=== PATIENT | female | born 1975 | race Caucasian/White ===

== ENCOUNTER 2025-08-22 22:07 | Inpatient (IN) | payer OTHER ==
[~2025-08-22] VITALS: Ht 172.7 cm; Wt 128.0 kg
--- NOTE | 2025-08-22 23:45 | Physician Documentation ---
History of Present Illness ~ Chief Complaint: Mental Health Eval Stated Complaint: MH Time Seen by MD: 22:27 HPI Patient is a 49-year-old female that presents to the emergency department for evaluation of acute onset of mental health/psychiatric issues. Reports that she has had progressive episodes over the last 6 months of hearing voices paranoid delusions of seeing in real-time people hacking into her phone hacking into her computer hearing famous people's voices in her head talking to her being more aggressive with her dog than she normally is per her daughter's thoughts of suicide due to the frustration of the voices in her head. Patient reports that she has consider driving off a jennifer drowning herself cutting her wrists but has not acted on those thoughts at this time. Patient denies interested in harming anyone else at this time. Patient reports that she has a history significant for depression anxiety PCOS that she is currently medicated for. Patient reports that she has stopped taking her medication for depression several months ago but is currently taking trazodone as needed Ativan as needed propranolol as needed metformin for her PCOS and spironolactone for her PCOS. Patient denies any other symptoms at this time. Medication Reconciliation Allergies: Coded Allergies: morphine (Verified Allergy, Unknown, 08/22/25) Scheduled Estradiol (Estradiol), 1 PATCH TD , (Reported) Meloxicam (Meloxicam), 1 TAB PO DAILY, (Reported) Metformin Hcl* (Metformin ER*), 2 TAB PO BID, (Reported) Spironolactone (Spironolactone), 1 TAB PO DAILY, (Reported) Topiramate (Topamax), 1 TAB PO DAILY, (Reported) Trazodone HCl (Trazodone HCl), 1-2 TAB PO HS, (Reported) Valacyclovir HCl (Valacyclovir), 1 TAB PO DAILY, (Reported) Scheduled PRN Propranolol Hcl* (Inderal*), 1-2 TAB PO BID PRN for anxiety, (Reported) Miscellaneous Medications Cyclosporine (Restasis Multidose), 1 DROP EACHEYE, (Reported) Estradiol (Imvexxy), (Reported) Ketoconazole (Ketoconazole), TOP, (Reported) Lorazepam (Ativan), (Reported) Review of Systems ROS As stated above in the HPI, otherwise all systems are reviewed and negative. Physical Exam Vital Signs: Temperature: 97.7, Source: Oral, Heart Rate: 99, Respiratory Rate: 16, BP: 121/82, Pulse Oximetry: 98, Weight: 136.950 Oxygen Flow Rate: 0 Physical Exam VITALS: Reviewed and as above. GENERAL: Alert and oriented, patient appears to be in mild distress and tearful. HEENT: Normocephalic, atraumatic, PERRL, EOMI, dry mucosa, no erythema RESPIRATORY: Lungs clear, normal breath sounds, no respiratory distress. CHEST: No accessory muscle use, no retractions CV: Regular rate, rhythm, no edema, no murmur, No: JVD GI: Soft, non-tender, bowels sounds present, no rebound, guarding, or rigidity BACK: No CVA tenderness, or swelling MUSCULOSKELETAL No deformities, no edema SKIN: Warm and dry, no rash NEURO: Oriented x4, No motor or sensory deficit PSYCH: No agitation noted at this time, patient is able to carry on a fluid conversation and report her symptoms. Progress Results/Orders Results/Orders Orders - MOHAMUD HUGHES MD Cephalexin Capsule (Keflex Capsule) (08/23/25 08:00) Completed Orders - MOHAMUD HUGHES MD Bacitracin Ointment (Bacitracin Ointment (08/23/25 00:45) Acetaminophen 325mg Tablet (Tylenol Tabl (08/23/25 00:55) Medications Received in ER Medications (Trade) Dose Ordered Sig/Efra Route PRN Reason Start Time Stop Time Status Last Admin Dose Admin (Desyrel tablet) 50 mg HS PRN PO Insomnia 08/22/25 23:25 08/23/25 01:18 50 MG (bacitracin ointment) 1 applic ONCE ONCE TP 08/23/25 00:45 08/23/25 00:46 DC 08/23/25 01:18 1 APPLIC (Tylenol tablet) 650 mg ONCE ONCE PO 08/23/25 00:55 08/23/25 00:56 DC 08/23/25 01:18 650 MG Vital Signs 08/22/25 22:15 Temp 97.7 Pulse 99 Resp 16 B/P (MAP) 121/82 Pulse Ox 98 O2 Flow Rate 0 Laboratory Tests Test 08/22/25 23:22 08/23/25 00:25 08/23/25 00:35 08/23/25 00:40 White Blood Count 6.8 Red Blood Count 3.56 L Hemoglobin 11.0 L Hematocrit 32.2 L Mean Corpuscular Volume 90.6 Mean Corpuscular Hemoglobin 30.8 Mean Corpuscular Hemoglobin Concent 34.0 Red Cell Distribution Width 14.3 Platelet Count 301 Mean Platelet Volume 9.0 Neutrophils (%) (Auto) 59.6 Lymphocytes (%) (Auto) 30.9 Monocytes (%) (Auto) 7.6 Eosinophils (%) (Auto) 1.7 Basophils (%) (Auto) 0.2 Neutrophils # (Auto) 4.0 Lymphocytes # (Auto) 2.1 Monocytes # (Auto) 0.5 Eosinophils # (Auto) 0.1 Basophils # (Auto) 0.0 CBC Comment Sodium Level 137 Potassium Level 3.5 Chloride Level 105 Carbon Dioxide Level 23.9 L Anion Gap 8 Blood Urea Nitrogen 13 Creatinine 0.73 Estimated GFR/1.73 m2 85 BUN/Creatinine Ratio 17.8 Glucose Level 119 H Calcium Level 8.3 L Total Bilirubin 0.2 Aspartate Amino Transf (AST/SGOT) 16 Alanine Aminotransferase (ALT/SGPT) 19 Alkaline Phosphatase 85 Total Protein 7.5 Albumin 3.1 L Globulin 4.4 H Albumin/Globulin Ratio 0.7 L LDL Cholesterol 92 Thyroid Stimulating Hormone (TSH) 4.30 Chemistry Comments Ethyl Alcohol Level < 10 Urine Specimen Description Cln catch midstream Urine Color Yellow Urine Clarity Slightly cloudy Urine pH 6.0 Urine Specific [place] 1.025 Urine Protein Negative Urine Glucose (UA) Negative Urine Ketones Trace H Urine Occult Blood Trace-intact Urine Nitrite Negative Urine Bilirubin Small Urine Urobilinogen 0.2 Urine Leukocyte Esterase Negative Urine RBC 3-10 Urine WBC 0-4 Urine Squamous Epithelial Cells Few Urine Bacteria 1+ Urine Culture Indicated Not ind Volume Urine Centrifuged 10 ml Urine HCG, Qualitative Negative Urine Comment Urine Opiates Screen Negative Urine Methadone Screen Negative Urine Fentanyl Screen Negative Urine Barbiturates Screen Negative Urine Phencyclidine Screen Negative Urine Amphetamines Screen Positive Urine Benzodiazepines Screen Negative Urine Cocaine Screen Negative Urine Cannabinoids Screen Negative Drug Screen Comment SARS-CoV-2 Antigen (Rapid) Negative [place] Level < 0.2 L EKG/XRAY/CT/US/VASC/MRI EKG : Additional Comment EKG interpreted by myself shows time of 0015, rate 88, sinus rhythm, normal axi s, no ST changes Medical Decision Making Additional info obtained from: other Findings This patient presents with symptoms consistent with an underlying psychiatric disorder unknown cause at this time. Presentation not consistent with acute organic causes to include delirium, dementia or drug induced disorders (acute ingestions or withdrawal; no evidence of toxidrome). Given the H&P, I suspect this patient is suicidal/homicidal/gravely disabled_ and patient was placed on 1798 hold. Psychiatry was consulted. Differential Dx:Considerations: Include: Alcohol abuse, Anxiety, Bipolar disorder, Conversion disorder, Depression, Encephaloathy, Homicidal, Panic disorder, Personality disorder, Schizophrenia, Substance abuse, Suicidal, Other Departure Disposition: 30 STILL A PATIENT Impression: Primary Impression: Anxiety Additional Impressions: Depression Suicidal ideation Discharge Instructions: Medical Screening Exam, Suicidal Feelings: How to Help Yourself, Depression, Adult Additional Instructions: This patient presents with symptoms consistent with an underlying psychiatric disorder unknown cause at this time. Presentation not consistent with acute organic causes to include delirium, dementia or drug induced disorders (acute ingestions or withdrawal; no evidence of toxidrome). Given the H&P, I suspect this patient is suicidal/homicidal/gravely disabled_ and patient was placed on 1798 hold. Labs reviewed and there was no evidence of major pathologic derangements. Patient is medically cleared for mental health evaluation Referrals: NO PRIMARY CARE PROVIDER (PCP) Education Educated: Patient Educated regarding: diagnosis, treatment, need for follow up Signature Scribe Signature: A Attestation: The note accurately reflects work and decisions made by me.Mohamud Hughes MD 08/23/25 02:09 Scribed for Esequiel Hernandez by YUDITH Escalera . 08/22/25 23:49 ESEQUIEL HERNANDEZ Aug 22, 2025 23:45 MOHAMUD HUGHES MD Aug 23, 2025 00:22
--- NOTE | 2025-08-23 00:40 | RADIOLOGY REPORT ---
CHEST RADIOGRAPH Indication: ro infection. Fever. Technique: Single frontal view of the chest was obtained COMPARISON: None FINDINGS: Lungs and pleural spaces are clear. Cardiac silhouette and letty are within normal limits. Bones and soft tissues demonstrate no significant abnormality. IMPRESSION: No acute disease.
[2025-08-23 00:44] LABS: MEAN PLATELET VOLUME 9.0 FL (7.4-10.4); RED CELL DISTRIBUTION WIDTH 14.3 % (11.5-14.5)
[2025-08-23 00:57] LABS: LEUKOCYTE ESTERASE ,URINE NEGATIVE (Neg); NITRITES, URINE NEGATIVE (Neg); OCCULT BLOOD,URINE TRACE-INTACT (Neg); UA COLLECTION TYPE CLN CATCH MIDSTREAM; URINE HCG NEGATIVE (NEG)
[2025-08-23] MEDS ORDERED: LORA-268 (01:00)
[2025-08-23] MEDS ORDERED: KETO15CR2 TOP (01:00)
[2025-08-23] MEDS ORDERED: CYCL5.5D EACHEYE (01:00)
[2025-08-23] MEDS ORDERED: TRAZ-251 PO (01:00)
[2025-08-23] MEDS ORDERED: ESTR1PAT93 TD (01:00)
[2025-08-23] MEDS ORDERED: VALA100031 PO (01:00)
[2025-08-23] MEDS ORDERED: METF-900 PO (01:00)
[2025-08-23] MEDS ORDERED: MELO-102 PO (01:00)
[2025-08-23] MEDS ORDERED: PROP10TA10 PO (01:00)
[2025-08-23] MEDS ORDERED: TOP100T PO (01:00)
[2025-08-23] MEDS ORDERED: SPIR25TA5 PO (01:00)
[2025-08-23] MEDS ORDERED: ESTR10IN VG (01:00)
[2025-08-23 01:02] LABS: CREATININE 0.73 MG/DL (0.40-0.90); LDL CHOLESTEROL 92 MG/DL (50-100); TOTAL CARBON DIOXIDE 23.9 MMOL/L (24-32); eCRCL 95 ML/MIN; eGFR 85 ML/MIN
[2025-08-23 01:04] LABS: ETHANOL < 10 MG/DL (<10)
[2025-08-23 01:18] LABS: URINE AMPHETAMINE SCREEN POSITIVE (Neg); URINE BARBITUATE SCREEN NEGATIVE (Neg); URINE BENZODIAZEPINES SCREEN NEGATIVE (Neg); URINE CANNABINOID SCREEN NEGATIVE (Neg); URINE COCAINE SCREEN NEGATIVE (Neg); URINE METHADONE SCREEN NEGATIVE (Neg); URINE OPIATE SCREEN NEGATIVE (Neg); URINE PHENCYCLIDINE SCREEN NEGATIVE (Neg)
[2025-08-23] MEDS: bacitracin 15gm ointment TP ONE (01:18)
[2025-08-23 01:26] LABS: SQUAMOUS EPITHELIAL CELL,UR FEW /LPF (FEW)
--- NOTE | 2025-08-23 05:41 | ELECTROCARDIOGRAPH REPORT ---
[facility] Test Date: 2025-08-23 Test Time: 00:15:38 Pat Name: DUANE CHILEL Department: [facility]- Patient ID: [facility]-[id number] Room: [facility] Gender: F Interface Control Officer: ANGELA : 1975 Requested By: ESEQUIEL HERNANDEZ Order Number: [id number] Reading MD: Dr. Jarrod Leary Measurements Intervals [place] Rate: 88 P: 30 NV: 156 QRS: 43 QRSD: 90 T: 24 QT: 367 QTc: 444 Interpretive Statements Sinus rhythm Baseline wander in lead(s) III Electronically Signed On 09-02-2025 8:16:[address] Jarrod Leary Please click the below link to view image of tracing.
[2025-08-23 07:57] LABS: CHOL/HDL RATIO 3.2 (0.00-4.99); LDL CHOLESTEROL 83 MG/DL (50-100)
[2025-08-23] MEDS: estradiol 0.1mg patch.TDWK TD SCH (08:00)
[2025-08-23] MEDS: METFORMIN HCL 500 MG PO SCH (08:00)
[2025-08-23] MEDS: cycloSPORINE 0.05% ophthalmic emulsion EACHEYE SCH (10:40)
[2025-08-23] MEDS ORDERED: mag hydrox/Alum hydrox/simeth 30ml oral suspension PO PRN (15:05)
[2025-08-23] MEDS ORDERED: loperamide 2mg capsule PO PRN (15:05)
[2025-08-23 16:50] VITALS: RESP 16; O2SAT 95
[2025-08-23] MEDS ORDERED: LORA-268 PO (17:23)
[2025-08-23 19:00] VITALS: RESP 16; O2SAT 100
[2025-08-23 20:00] VITALS: BP 126/78; PULSE 80; RESP 16; TEMP 97; O2SAT 100
[2025-08-24 07:00] VITALS: RESP 16; O2SAT 97
[2025-08-24 08:00] VITALS: BP 122/78; PULSE 81; RESP 16; TEMP 97; O2SAT 97
[2025-08-24 09:50] LABS: CHOL/HDL RATIO 3.3 (0.00-4.99); LDL CHOLESTEROL 86 MG/DL (50-100)
[2025-08-24] MEDS: MELOXICAM 7.5 MG TABLET PO SCH (12:11)
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
--- NOTE | 2025-08-24 18:07 | CONSULTATION REPORT - RESIDENT ---
Consult Providers to CC Resident Creating Document: BECKA GEE RES History of Present Illness Reason for Admit\Complaint: Psychiatric Illness History of Present Illness This is a 49-year-old female admitted in adult Mental Health unit for psychiatric illness. She reports that she she has pain in left big toe which is 7/10 in intensity, swollen, non radiating , no aggravating or relieving factors. In addition to that she also has right toe pain which is 4/10 in intensity, swollen, nonradiating, no aggravating or relieving factors. Patient reports both right and left toe swelling since 5 years but it has been getting worse for the past couple of days. In addition to that she also complains of back pain for the past 15 years and back pain aggravates with walking. She attributes her back pain due to a fall 15 years ago. She denies chest pain, shortness of breath, states normal bowel movements, no nausea and vomitting She also reports that she is allergic to morphine derivatives. Allergies: Coded Allergies: morphine (Verified Allergy, Unknown, 08/22/25) Home Medications Home Medications Active Reported Ativan (Lorazepam) 0.5 Mg Tablet 1 Tab PO DAILY PRN Restasis Multidose (Cyclosporine) 0.05 % Drops 1 Drop EACHEYE BID Ketoconazole 2 % Cream..g. 1 Applic TOP DAILY PRN Metformin ER* (Metformin HCl) 500 Mg Tab.sr.24h 2 Tab PO BID Spironolactone 25 Mg Tablet 1 Tab PO DAILY Trazodone HCl 50 Mg Tablet 1-2 Tab PO HS Inderal* (Propranolol HCl) 10 Mg Tablet 1 Tab PO BID PRN Estradiol 0.1 Mg/24 Hour Patch.tdsw 1 Patch TD TUFR Imvexxy (Estradiol) 10 Mcg Insert 10 Mcg VG DAILY Valacyclovir (Valacyclovir HCl) 1,000 Mg Tablet 1 Tab PO DAILY Meloxicam 15 Mg Tablet 1 Tab PO DAILY Topamax (Topiramate) 100 Mg Tablet 1 Tab PO DAILY Past Medical History Past Medical History Cervical Cancer Past Surgical History Surgical History Comment As per patient cervical removal and partial hysterectomy Family History Family History: Patient reports no known family medical history. Past Social History Social History Comment She has been smoking since age 19 and smokes about 3-4 cigarettes daily Denies alcohol use Denies other recreational drug use She lives with a Ex boyfriend amd used to work in [employer] ROS ROS All reviewed and negative except for pertinent positive findings mentioned in HPI. Exam Vitals: Vital Signs Date Time Temp Pulse Resp B/P (MAP) Pulse Ox O2 Delivery O2 Flow Rate FiO2 08/24/25 08:59 81 08/24/25 08:00 97.0 16 122/78 (93) 97 08/24/25 07:00 Room Air 08/22/25 22:15 0 General: Awake , alert and oriented to time,place, person,not in distress HEENT: Atraumatic, normocephalic, PERRLA, EOMI, anicteric sclera ; pink conjunctiva, dry mucos membranes Neck: Trachea midline. Supple, normal range of motion, no JVD, no lymphadenopathy Chest and Respiratory: Equal breath sounds bilaterally, no tachypnea, wheezing, ronchi,rubs .Chest wall is symmetric and without deformity, Cardiac: S1, S2 heard,Regular rate and rhythm, no murmurs heard Abdomen: Soft, No tenderness, No guarding or rigidity, Felipe's sign negative. normal bowel sounds x4 quadrant, no hepatosplenomegaly MSK: Range of motion of all extremities are normal. There is no joint pain or joint swelling or joint erythema. There is no muscle pain or tenderness or swelling. Extremities: warm, well-perfused, No cyanosis, clubbing, 2+ pulses felt Upper Extremities normal. Right and Left Big toe swollen and erythematous. Bilaterally swelling of lower extremities. Neurological: Speech is clear, alert, and oriented x 4. No sensory or motor deficits. Cranial nerves II-XII intact. Skin: Warm and dry Diagnostic Data Last Recorded Lab Results: 08/22/25 23208/22/25 232 Additional Plan This is a 49-year-old female admitted for psychiatric illness adult mental health Unit Right Big Toe/Left Big Toe Swelling Ordered CBC, CRP,ESR Consulted wound care and Paperboard Boxes Estimator WBC COUNT NORMAL Bilateral lower Leg and Feet Swelling Denies shortness of breath Ordered vascular ultrasound of lower extremity Patient reports that swelling since 5-6 years. NORMOCYTIC NORMOCHROMIC ANEMIA Hgb 11 Hct: 32.2 Follow up with iron panel Psychiatric Illness Managed as per psychiatric team. Disposition: Hospitalist team will continue to monitor patient. Becka Gee PGY1 IM Date of Service: Aug 24, 2025 Billing Provider: DIMITRI RIVERO MD Common Visit Codes: [id number] INP/OBS CARE (HIGH) BECKA GEE, BRUCE Aug 24, 2025 18:07 DIMITRI RIVERO MD Aug 25, 2025 10:13
[2025-08-24 19:21] LABS: LDL CHOLESTEROL 92 MG/DL (50-100); PRO BRAIN NATRIURETIC PEPTIDE 213 PG/ML (0-125)
[2025-08-24 19:36] VITALS: RESP 18; O2SAT 97
[2025-08-24 19:38] VITALS: BP 137/72; PULSE 83; RESP 18; TEMP 97.6; O2SAT 97
[2025-08-25 07:00] VITALS: RESP 16; O2SAT 98
[2025-08-25 08:00] VITALS: BP 93/54; PULSE 84; RESP 16; TEMP 97.4; O2SAT 98
--- NOTE | 2025-08-25 10:38 | VASCULAR REPORT ---
Bilateral lower extremity venous duplex Clinical History: Pain Comparison: None Technique: Duplex Doppler evaluation of the deep venous systems of both lower extremities from the common femoral veins to the popliteal veins including color Doppler and spectral/pulsed waveform analysis was performed. Findings: RIGHT SIDE: The common femoral vein demonstrates appropriate compressibility and waveform variability. There is compressibility/patency of the great saphenous vein at the proximal thigh. The femoral vein demonstrates appropriate compressibility and waveform variability. The deep femoral vein demonstrates appropriate compressibility and waveform variability. The popliteal vein demonstrates appropriate compressibility and waveform variability. There is normal compressibility at the tibioperoneal trunk. LEFT SIDE: The common femoral vein demonstrates appropriate compressibility and waveform variability. There is compressibility/patency of the great saphenous vein at the proximal thigh. The femoral vein demonstrates appropriate compressibility and waveform variability. The deep femoral vein demonstrates appropriate compressibility and waveform variability. The popliteal vein demonstrates appropriate compressibility and waveform variability. There is normal compressibility at the tibioperoneal trunk. Impression: No right or left femoropopliteal venous thrombosis.
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
[2025-08-25] MEDS: propranolol 10mg tablet PO PRN (14:16)
[2025-08-25] MEDS: duloxetine 30mg CAPSULE.DR PO ONE (15:17)
[2025-08-25 19:00] VITALS: RESP 14; O2SAT 98
[2025-08-25 19:49] VITALS: BP 120/62; PULSE 85; RESP 14; TEMP 97.5; O2SAT 98
[2025-08-26 07:00] VITALS: RESP 14; O2SAT 97
[2025-08-26 08:00] VITALS: BP 118/70; PULSE 80; RESP 14; TEMP 98.9; O2SAT 97
[2025-08-26] MEDS: duloxetine 30mg CAPSULE.DR PO SCH (08:17)
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
--- NOTE | 2025-08-26 15:05 | PROGRESS NOTE ---
Daily Progress Note Providers to CC ~ Antibiotic Timeout Antibiotic Ordered?: Yes Subjective Patient mentioned that her left great toe hurts when she walks Objective Vital Signs Date Time Temp Pulse Resp B/P (MAP) Pulse Ox O2 Delivery O2 Flow Rate FiO2 08/26/25 14:29 17 08/26/25 08:37 118 08/26/25 08:00 98.9 118/70 (86) 97 Room Air 08/26/25 07:00 0.0 Result Diagram: 08/22/25232108/22/252321 General-patient not in any acute distress, alert awake , looks comfortable, obese HEENT-atraumatic normocephalic, neck supple without elevated JVD, no thyromegaly or carotid bruit. No lymphadenopathy bilaterally. Eyes-no icterus or pallor seen in eyes Chest-clear to auscultation bilaterally, breathing nonlabored no tachypnea, no wheezing, no crepitation, no crackles. Heart-S1-S2 normal, regular heart rate no murmur Abdomen bowel sounds positive on auscultation, soft nondistended nontender no guarding, no rigidity Skin / extremity-no pedal edema able to move all four extremity. Signs of ingrown toenail inflammation over left great toe Neurology-grossly intact, nonfocal alert awake cooperated during physical examination Problem\Assessment\Plan This is a 49-year-old female admitted for psychiatric illness adult mental health Unit Right Big Toe/Left Big Toe Swelling Mildly elevated sed rate Ordered procalcitonin level WBC COUNT NORMAL Patient needs wound care follow-up in [facility] Bilateral lower Leg and Feet Swelling vascular ultrasound of lower extremity showed No right or left femoropopliteal venous thrombosis. NORMOCYTIC NORMOCHROMIC ANEMIA Hgb 11 Hct: 32.2 Follow up with iron panel Psychiatric Illness Managed as per psychiatric team. Disposition: Hospitalist team will continue to monitor patient. Date of Service: Aug 26, 2025 Billing Provider: FREDRICK THAKKAR MD Common Visit Codes: [id number] INP/OBS CARE(LOW) FREDRICK THAKKAR MD Aug 26, 2025 15:05
[2025-08-26 19:00] VITALS: RESP 18; O2SAT 94
[2025-08-26 19:15] VITALS: BP 112/70; PULSE 90; RESP 18; TEMP 97.9; O2SAT 94
[2025-08-27 07:00] VITALS: RESP 16; O2SAT 98
[2025-08-27 07:43] LABS: MEAN PLATELET VOLUME 8.4 FL (7.4-10.4); RED CELL DISTRIBUTION WIDTH 14.0 % (11.5-14.5)
[2025-08-27 08:15] VITALS: BP 126/79; PULSE 93; RESP 16; TEMP 97.2; O2SAT 98
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
[2025-08-27 17:26] LABS: CLOZ+NORCLOZ TOTAL <40 ng/mL (.); NORCLOZAPINE, SERUM <20 ng/mL (Not Estab.)
[2025-08-27 19:47] VITALS: BP 126/79; PULSE 99; RESP 20; TEMP 97.2; O2SAT 97
[2025-08-27 20:00] VITALS: RESP 20; O2SAT 97
[2025-08-28 07:00] VITALS: RESP 18; O2SAT 97
[2025-08-28 07:33] VITALS: BP 126/78; PULSE 79; RESP 16; TEMP 97.9; O2SAT 98
[2025-08-28] MEDS: duloxetine 30mg CAPSULE.DR PO SCH (08:06)
[2025-08-28] MEDS: Permethrin 1% 59ml topical rinse TP ONE (10:50)
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
--- NOTE | 2025-08-28 16:15 | PROGRESS NOTE- Residence ---
Progress Note - Resident Providers to CC Resident Creating Document: HENRI GARCIA, BRUCE ~ Central Line/PICC still needed: N\A [place]-Non Protocol [place] Indications Met/Not Met: F/C Indications Not Met Antibiotic Timeout Antibiotic Ordered?: No Objective Vital Signs Date Time Temp Pulse Resp B/P (MAP) Pulse Ox O2 Delivery O2 Flow Rate FiO2 08/28/25 08:07 79 08/28/25 07:33 97.9 16 126/78 (94) 98 Room Air 0.0 Result Diagram: 08/27/25 0707 Counseling Services Smoking & Tobacco Cessation: N/A Advance Care Planning Advanced Care planning: N/A Plan Plan Head lice break out in mental Ordered ivermectin 200 mcg per body weight- 20 mg for 7 days an empty stomach Date of Service: Aug 28, 2025 Billing Provider: NADINE BRANCH MD Common Visit Codes: [id number] INP/OBS CARE(LOW) HENRI GARCIA, BRUCE Aug 28, 2025 16:15 NADINE BRANCH MD Aug 31, 2025 14:42
[2025-08-28 19:00] VITALS: RESP 16; O2SAT 98
[2025-08-28 20:00] VITALS: BP 115/76; PULSE 106; RESP 16; TEMP 97.8; O2SAT 98
[2025-08-28] MEDS: magnesium hydroxide 30ml (MOM) UD suspension PO PRN (20:46)
[2025-08-29 07:53] VITALS: BP 94/70; PULSE 88; RESP 16; TEMP 97.4; O2SAT 98
[2025-08-29 08:24] VITALS: RESP 18; O2SAT 97
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
[2025-08-29] MEDS: amox tr/potassium clavulanate 500mg/125mg TAB PO SCH (17:24)
[2025-08-29 19:00] VITALS: RESP 18; O2SAT 97
[2025-08-29 20:00] VITALS: BP 136/89; PULSE 112; RESP 18; TEMP 97.9; O2SAT 97
[2025-08-30 07:00] VITALS: RESP 16; O2SAT 97
[2025-08-30 08:00] VITALS: BP 96/64; PULSE 78; RESP 16; TEMP 98.2; O2SAT 97
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
[2025-08-30 19:00] VITALS: RESP 18; O2SAT 100
[2025-08-30] MEDS ORDERED: IVERMECTIN 117 GM LOTION TP ONE ×2 (19:00)
--- NOTE | 2025-08-30 19:03 | PROGRESS NOTE ---
Daily Progress Note Providers to CC ~ Antibiotic Timeout Antibiotic Ordered?: Yes Subjective This is the hospitalist progress note on patients hospitalized at [facility]/ [facility] [place] for behavioral health. The patient is on lice isolation thus I evaluated the patient from the doorway the patient did take off her shoe and I evaluated her right great toe ingrown toenail for which the patient does have medial erythema which is mild the patient is on Augmentin however we will need outpatient podiatry follow up for toenail removal. Objective Vital Signs Date Time Temp Pulse Resp B/P (MAP) Pulse Ox O2 Delivery O2 Flow Rate FiO2 08/30/25 09:08 78 08/30/25 08:00 98.2 16 96/64 (75) 97 Room Air 08/30/25 07:00 0.0 Result Diagram: 08/27/25 0707 Gen. No acute distress alert and oriented Respiratory no acute distress no dyspnea appreciated Neuro no focal deficits appreciated Right lower extremity- great toe is erythematous medially with ingrown toenail immediately Problem\Assessment\Plan This is a 49-year-old female admitted for psychiatric illness adult mental health Unit Severe depression ADHD Followed by Psychiatry Right 1st toe ingrown toenail medially Augmentin times one-week We will need outpatient follow up with the Podiatry Bilateral lower Leg and Feet Swelling vascular ultrasound of lower extremity showed No right or left femoropopliteal venous thrombosis. NORMOCYTIC NORMOCHROMIC ANEMIA Hgb 11 Hct: 32.2 Lice Treated with permethrin P.o. ivermectin Disposition: Hospitalist team will continue to monitor patient. Date of Service: Aug 30, 2025 Billing Provider: ALVARO KUMAR DO Common Visit Codes: [id number] INP/OBS CARE(LOW) ALVARO KUMAR DO Aug 30, 2025 19:03
[2025-08-30] MEDS: docusate sod 100mg capsule PO SCH (19:57)
[2025-08-30 20:00] VITALS: BP 124/92; PULSE 104; RESP 18; TEMP 98.8; O2SAT 100
[2025-08-31 07:40] VITALS: BP 96/58; PULSE 79; RESP 14; TEMP 98.3; O2SAT 98
[2025-08-31 09:13] VITALS: RESP 14; O2SAT 98
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
[2025-08-31 19:00] VITALS: RESP 16; O2SAT 98
[2025-08-31 19:23] VITALS: BP 112/82; PULSE 90; RESP 20; TEMP 97.9; O2SAT 98
[2025-09-01 07:30] VITALS: BP 107/76; PULSE 79; RESP 14; RESP 16; TEMP 98.5; O2SAT 97
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
[2025-09-01 19:00] VITALS: RESP 20; O2SAT 99
--- NOTE | 2025-09-01 19:36 | PROGRESS NOTE- Residence ---
Progress Note - Resident Providers to CC Resident Creating Document: JOSHUA MARTINEZ RES ~ Antibiotic Timeout Antibiotic Ordered?: Yes Subjective Patient was seen at the [facility] unit this evening. She complained about the chronic right lower back pain over a year which is bothering her on walking around. She has been taking Tylenol and ibuprofen which were not very helpful. She is currently taking meloxicam for her back pain and still wants to have some treatment and investigations including x-ray/some other imaging. She reported that there is a some other localized muscular pain over her right thigh as well. She denies burning/painful urination, hematuria, history of passing kidney stones. She also endorsed that she has been having the painful ingrown right toenail for which she has prescribed with Augmentin. She endorsed that she has contaminated lice infestation for which she has been treated and isolated for awhile. Objective Vital Signs Date Time Temp Pulse Resp B/P (MAP) Pulse Ox O2 Delivery O2 Flow Rate FiO2 09/01/25 08:09 79 09/01/25 07:30 98.5 14 107/76 (86) 97 Room Air 0.0 Vitals were stable at the moment with temp 98.5 F, TX 79/minute, RR 16/minute, BP 107/76 mm Hg, pulse oximetry 97% on room air. On exam, General: Well alert, well oriented, not confused, not agitated, not in acute distress, well cooperated during the physical. HEENT: Conjunctive are pink, sclerae clear, no icterus, pupil is equal in both sides, reactive to light, no ear discharge, no pharyngeal erythema or an edema, mouth and lips are moist. Neck: Supple, no JVD, no lymphadenopathy and thyromegaly. Lungs:Equal air entry on both lungs, no additional sounds Heart: S1-S2 regular sinus rhythm and, regular rate, no gallops, no rubs, no murmurs Abdomen: No visible peristalsis, Bowel sounds present on auscultation, soft, nontender, no guarding, no rigidity Extremities: No obvious deformities, no pitting edema bilaterally, capillary refill intact, able to wiggle toes both sides, peripheral pulsations are intact on both sides LEAD NITRATE PROCESSOR: No focal neurological deficits, no motor and sensory weakness in all 4 extremities, could move all 4 extremities Musculoskeletal: Slight tenderness over the right lower paraspinal muscular pain with no shooting tenderness. No joint swelling, deformities, inflammations, and no scoliosis Skin: No active skin lesions and rashes Assessment Assessment This is a 49-year-old female admitted for psychiatric illness adult mental h [facility] Unit Plan Plan # Severe depression # ADHD -Followed by Psychiatry # Right 1st toe ingrown toenail medially -Augmentin for one-week -She will need outpatient follow up with the Podiatry # Bilateral lower Leg and Feet Swelling # right lower paravertebral pain -vascular ultrasound of lower extremity showed No right or left femoropopliteal venous thrombosis. -continue meloxicam, started topical lidocaine patch 5% daily # NORMOCYTIC NORMOCHROMIC ANEMIA Hgb 11 Hct: 32.2 # Lice infestation Treated with permethrin, P.o. ivermectin Disposition: Hospitalist team will follow the patient during hospitalization, you are welcome to questions and medical consultation, appreciate for letting us involved in patient's care. Resident MD attestation: Patient was seen, examined and discussed with attending MD, Dr. Linda MARTINEZ MD Internal Medicine Resident, PGY3 [facility] Date of Service: Sep 01, 2025 Billing Provider: FRANDY CLAYTON MD Common Visit Codes: [id number] INP/OBS CARE(MOD) JOSHUA MARTINEZ, RES Sep 01, 2025 19:36 FRANDY CLAYTON MD Sep 13, 2025 06:53
[2025-09-01 20:00] VITALS: BP 125/85; PULSE 117; RESP 20; TEMP 97.9; O2SAT 99
[2025-09-02 07:00] VITALS: RESP 16; O2SAT 98
[2025-09-02 08:00] VITALS: BP 112/70; PULSE 118; RESP 16; TEMP 97.9; O2SAT 98
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
[2025-09-02 19:00] VITALS: RESP 20; O2SAT 99
[2025-09-02 20:00] VITALS: BP 128/80; PULSE 60; RESP 20; TEMP 97.7; O2SAT 99
[2025-09-03 07:00] VITALS: RESP 16; O2SAT 98
[2025-09-03 08:00] VITALS: BP 100/65; PULSE 116; RESP 16; TEMP 97.4; O2SAT 98
--- NOTE | 2025-09-03 18:23 | PROGRESS NOTE- Residence ---
Progress Note - Resident Providers to CC Resident Creating Document: TITO SLATER RES ~ Antibiotic Timeout Antibiotic Ordered?: Yes Subjective Patient seen and examined at bedside. He is complaining of pain in her lower back and is concerned about a lump. On examination I did not find any lump. She wants to get imaging x-ray. Also has a an ingrown toe nail, currently getting Augmentin completing a course of seven days for it. Objective Vital Signs Date Time Temp Pulse Resp B/P (MAP) Pulse Ox O2 Delivery O2 Flow Rate FiO2 09/03/25 08:21 116 09/03/25 08:00 97.4 16 100/65 (77) 98 Room Air 09/03/25 07:00 0.0 General: Awake and Alert, no acute distress. HEENT: Conjunctiva pink, Sclera clear, Mucus Membranes moist. Neck: Supple without masses and tenderness. Resp: Unlabored. Equal breath sounds bilaterally. Heart: Regular rhythm, normal S1 and S2, no rub, murmur or gallop. Abdomen: Soft and non tender no organomegaly. Normal bowel sounds x4 quadrant normoactive. No guarding or rigidity. Extremities: Normal ROM, right great toe ingrown toenail with minimal erythema. MEDICAL REIMBURSEMENT MANAGER: No gross motor or sensory abnormalities. Skin: Warm and Dry. Assessment Assessment 49-year-old female admitted to the mental health unit for severe depression and ADHD. Plan Plan Severe depression ADHD Right 1st digit ingrown toenail, currently completing course of Augmentin Chronic back pain, we will get x-ray of the back follow up with results Lice infestation treated with permethrin Management per psychiatrist, hospitalist team will continue to follow. Date of Service: Sep 03, 2025 Billing Provider: DIMITRI RIVERO MD Common Visit Codes: [id number] INP/OBS CARE(MOD) TITO SLATER RES Sep 03, 2025 18:23 DIMITRI RIVERO MD Sep 04, 2025 10:30
[2025-09-03 19:00] VITALS: RESP 16; O2SAT 95
[2025-09-03 20:00] VITALS: BP 129/63; PULSE 88; RESP 16; TEMP 97.8; O2SAT 95
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
[2025-09-04 07:00] VITALS: RESP 14; O2SAT 100
[2025-09-04 08:00] VITALS: BP 96/60; PULSE 76; RESP 14; TEMP 97.8; O2SAT 100
[2025-09-04] MEDS: IVERMECTIN 117 GM LOTION TP ONE (11:29)
[2025-09-04] MEDS: Permethrin 1% 59ml topical rinse TP ONE (14:32)
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
[2025-09-04 19:26] VITALS: RESP 16; O2SAT 98
[2025-09-04 19:29] VITALS: BP 110/70; PULSE 118; RESP 16; TEMP 97.4; O2SAT 98
[2025-09-05 07:00] VITALS: RESP 16; O2SAT 95
[2025-09-05 08:00] VITALS: BP 104/60; PULSE 78; RESP 15; TEMP 97.3; O2SAT 90
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
--- NOTE | 2025-09-05 18:39 | PROGRESS NOTE- Residence ---
Progress Note - Resident Providers to CC Resident Creating Document: OLGA BRINKELIANA LUIS, RES ~ Antibiotic Timeout Antibiotic Ordered?: No Subjective Patient has been evaluated in mental health unit. The patient is currently complaining of lower back pain, states that he would like to get an x-ray before being discharged. As per medical records she was concerned about a lump, not evidenced on physical exam. Also has a an ingrown toe nail, currently getting Augmentin completing a course of seven days for it. Objective Vital Signs Date Time Temp Pulse Resp B/P (MAP) Pulse Ox O2 Delivery O2 Flow Rate FiO2 09/05/25 08:00 97.3 78 15 104/60 (75) 90 Room Air 09/03/25 19:00 0.0 Physical exam: General: Awake, alert, oriented. No acute distress. Well-developed, hydrated and well-built nourished. No anemia, Jaundice or clubbing. HEENT: Conjunctive are pink, sclerae clear, no icterus, pupil is equal in both sides, reactive to light, no ear discharge, no pharyngeal erythema or an edema. Neck: Supple, no adenopathy, thyromegaly. Trachea is midline. No JVD. Chest: Respiratory: Vesicular breath sounds. No ronchi, crepitus or wheezing. Resonance is normal upon percussion of all lung galindo. Cardiovascular: S1-S2 regular sinus rhythm and, regular rate, no gallops, no rubs, no murmurs Abdomen: No visible distention, Bowel sounds present on auscultation, on palpation: soft, nontender, no guarding, no rigidity. Extremities: No obvious deformities, no pitting edema bilaterally, capillary refill intact, peripheral pulsations are intact on both sides, right great toe ingrown toenail. Neurologic: Mental status: alert and conscious, oriented to place, person and time, preserved memory, normal speech. Cranial nerves I-XII: Normal. Motor system: Preserved power, coordination, no evidenced involuntary movements, strength 5/5 in four extremities. Sensory system: Preserved temperature, pain and vibration sensation. 2+ deep tendon reflexes in biceps, triceps, quadriceps. Negative Babinski. Cerebellar: No nystagmus, dysdiadochokinesia, normal [id number] testing. Skin: Warm and dry. Assessment Assessment 49-year-old female admitted to the mental health unit for severe depression and ADHD. Plan Plan Severe depression ADHD Continue management as per psychiatrist. Right 1st digit ingrown toenail Completed course of Augmentin today. Chronic back pain Pending x-ray of the lumbar spine. Lice infestation treated with permethrin-currently out of isolation. Disposition: Management per psychiatrist, hospitalist team will continue to follow. Eliana Brink Internal Medicine Resident [facility] Date of Service: Sep 05, 2025 Billing Provider: DIMITRI RIVERO MD Common Visit Codes: [id number] INP/OBS CARE(MOD) ELIANA DOE, RES Sep 05, 2025 18:39 DIMITRI RIEVRO MD Sep 06, 2025 06:20
[2025-09-05 20:00] VITALS: BP 121/85; PULSE 113; RESP 16; TEMP 97.5; O2SAT 96
[2025-09-05 20:58] VITALS: RESP 16; O2SAT 96
[2025-09-06 07:00] VITALS: BP 101/62; PULSE 76; RESP 16; TEMP 97.3; O2SAT 98
[2025-09-06] MEDS: estradiol 0.1mg patch.TDWK TD SCH (12:55)
--- NOTE | 2025-09-06 14:29 | RADIOLOGY REPORT ---
[facility] INDICATION: back pain COMPARISON: DI LUMBAR SPINE LIMITED on DOS: 09/06/25 TECHNIQUE:3 views of the thoracic spine were obtained. FINDINGS: The thoracic vertebral alignment is normal. The intervertebral disc spaces are well-maintained. No significant facet arthropathy is noted. No acute fracture, vertebral compression deformity or aggressive osseous lesions. The imaged thorax and abdomen are grossly unremarkable. IMPRESSION: No acute fracture.
--- NOTE | 2025-09-06 14:42 | RADIOLOGY REPORT ---
INDICATION: back pain COMPARISON: DI THORACIC SPINE LITD on DOS: 09/06/25 TECHNIQUE: 3 views of the lumbar spine were obtained. FINDINGS: The lumbar vertebral alignment is normal. The intervertebral disc spaces are well-maintained. No significant facet arthropathy is noted. No acute fracture, vertebral compression deformity or aggressive osseous lesions. The paravertebral soft tissues are grossly unremarkable. IMPRESSION: No acute fracture or subluxation.
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
[2025-09-06 19:22] VITALS: BP 117/78; PULSE 78; RESP 16; TEMP 98.6; O2SAT 97
[2025-09-07 07:00] VITALS: BP 103/65; PULSE 77; RESP 14; TEMP 97.6; O2SAT 98
[2025-09-07] MEDS: duloxetine 30mg CAPSULE.DR PO SCH (08:58)
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
--- NOTE | 2025-09-07 15:22 | PROGRESS NOTE ---
Daily Progress Note Providers to CC ~ Antibiotic Timeout Antibiotic Ordered?: No Subjective This is the hospitalist progress note on patients hospitalized at [facility] [place] [facility]. The patient complains of low-back pain and on the right radiates to her hip she points to her SI joints bilaterally - the patient is requesting an MRI however I informed her that her x-rays of her thoracic and lumbar spine were unremarkable, thus I have recommended physical therapy- note the patient states that she is able to ambulate however she can not walk far that has no heena weakness in her lower extremities. Objective Vital Signs Date Time Temp Pulse Resp B/P (MAP) Pulse Ox O2 Delivery O2 Flow Rate FiO2 09/07/25 08:59 77 09/07/25 07:00 97.6 14 103/65 (78) 98 Room Air 09/03/25 19:00 0.0 Gen. No acute distress alert and oriented 4, morbid obesity Lungs clear to ascultation bilaterally, no wheezes rales or rhonchi appreciated Heart normal sinus rhythm no murmurs rubs or clicks noted Abdomen soft nontender bowel sounds are normoactive Lower extremities no clubbing cyanosis, nor edema appreciated bilaterally Muscle skeletal point tenderness of the SI joints bilaterally. Problem\Assessment\Plan This is a 49-year-old female admitted for psychiatric illness adult mental health Unit Severe depression ADHD Followed by Psychiatry Right 1st toe ingrown toenail medially Completed a one-week course of Augmentin We will need outpatient follow up with the Podiatry Bilateral lower Leg and Feet Swelling vascular ultrasound of lower extremity showed No right or left femoropopliteal venous thrombosis. NORMOCYTIC NORMOCHROMIC ANEMIA Hgb 11 Hct: 32.2 Lice Treated with permethrin P.o. ivermectin Out of isolation Low-back pain Likely secondary bilateral SI joint dysfunction Physical therapy Continue PRN ibuprofen and scheduled meloxicam Disposition: Hospitalist team will continue to monitor patient. Date of Service: Sep 07, 2025 Billing Provider: ALVARO KUMAR DO Common Visit Codes: [id number] INP/OBS CARE(MOD) ALVARO KUMAR DO Sep 07, 2025 15:22
[2025-09-07 19:00] VITALS: RESP 18; O2SAT 97
[2025-09-07 20:00] VITALS: BP 121/81; PULSE 78; RESP 16; TEMP 97.3; O2SAT 96
[2025-09-08 07:00] VITALS: RESP 16; O2SAT 96
[2025-09-08 08:00] VITALS: BP 105/74; PULSE 75; RESP 16; TEMP 97.3; O2SAT 96
[2025-09-08 19:00] VITALS: RESP 16; O2SAT 97
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
[2025-09-08 20:00] VITALS: BP 115/83; PULSE 98; RESP 16; TEMP 98.5; O2SAT 97
[2025-09-09 07:00] VITALS: RESP 16; O2SAT 98
[2025-09-09 08:00] VITALS: BP 121/80; PULSE 80; RESP 16; TEMP 97; O2SAT 98
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
--- NOTE | 2025-09-09 18:48 | PROGRESS NOTE- Residence ---
Progress Note - Resident Providers to CC Resident Creating Document: TITO SLATER RES ~ Antibiotic Timeout Antibiotic Ordered?: No Subjective Patient has been evaluated in mental health unit. Continues to complain of lower back pain. She is in the recreation room doodling. Objective Vital Signs Date Time Temp Pulse Resp B/P (MAP) Pulse Ox O2 Delivery O2 Flow Rate FiO2 09/09/25 09:27 80 09/09/25 08:00 97.0 16 121/80 (94) 98 Room Air 09/08/25 07:00 0.0 General: Awake and Alert, no acute distress. HEENT: Conjunctiva pink, Sclera clear, Mucus Membranes moist. Neck: Supple without masses and tenderness. Resp: Unlabored. Equal breath sounds bilaterally. Heart: Regular rhythm, normal S1 and S2, no rub, murmur or gallop. Abdomen: Soft and non tender no organomegaly. Normal bowel sounds x4 quadrant normoactive. No guarding or rigidity. Extremities: Normal ROM, right great toe ingrown toenail SOLAR ENERGY SPECIALIST: No gross motor or sensory abnormalities. Skin: Warm and Dry. Assessment Assessment 49-year-old female admitted to the mental health unit for severe depression and ADHD. Plan Plan Severe depression ADHD Right 1st digit ingrown toenail, completed course of Augmentin Chronic back pain, x-ray of the thoracic and lumbar spine: no acute changes noted Lice infestation treated with permethrin Management per psychiatrist, hospitalist team will continue to follow. Date of Service: Sep 09, 2025 Billing Provider: NADINE BRANCH MD, ELIZABETH, RES Sep 09, 2025 18:48
[2025-09-09 19:00] VITALS: RESP 18; O2SAT 99
[2025-09-09 20:00] VITALS: BP 124/82; PULSE 103; RESP 18; TEMP 97.1; O2SAT 99
[2025-09-10 07:00] VITALS: RESP 18; O2SAT 99
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
[2025-09-10 08:00] VITALS: BP 104/66; PULSE 73; RESP 18; TEMP 97.5; O2SAT 99
[2025-09-10 19:00] VITALS: RESP 16; O2SAT 99
[2025-09-10 20:00] VITALS: BP 115/81; PULSE 104; RESP 16; TEMP 97.4; O2SAT 99
[2025-09-11 08:00] VITALS: BP 122/76; PULSE 84; RESP 15; TEMP 97.9; O2SAT 98
[2025-09-11 08:25] VITALS: RESP 15; O2SAT 98
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
--- NOTE | 2025-09-11 18:21 | PROGRESS NOTE- Residence ---
Progress Note - Resident Providers to CC Resident Creating Document: WESTON RICH, BRUCE ~ Antibiotic Timeout Antibiotic Ordered?: No Subjective Patient has been evaluated in mental health unit. She denies any medical complaints. She does not complain of any back pain. Objective Vital Signs Date Time Temp Pulse Resp B/P (MAP) Pulse Ox O2 Delivery O2 Flow Rate FiO2 09/11/25 08:27 84 09/11/25 08:25 15 98 Room Air 09/11/25 08:00 97.9 122/76 (91) 09/08/25 07:00 0.0 General: Awake and Alert, no acute distress. HEENT: Conjunctiva pink, Sclera clear, Mucus Membranes moist. Neck: Supple without masses and tenderness. Resp: Unlabored. Equal breath sounds bilaterally. Heart: Regular rhythm, normal S1 and S2, no rub, murmur or gallop. Abdomen: Soft and non tender no organomegaly. Normal bowel sounds x4 quadrant normoactive. No guarding or rigidity. Extremities: Normal ROM, right great toe ingrown toenail FLAVOR ROOM WORKER: No gross motor or sensory abnormalities. Skin: Warm and Dry. Assessment Assessment 49-year-old female admitted to the mental health unit for severe depression and ADHD. Plan Plan Severe depression ADHD Continue management as per psychiatrist. Right 1st digit ingrown toenail Completed course of Augmentin Chronic back pain X-ray thoracic and lumbar spine were normal Pain controlled with lidocaine patch Lice infestation treated with permethrin - currently out of isolation. Disposition: Management per psychiatrist, hospitalist team will continue to follow. Weston Rich MD Internal Medicine resident, PGY-1 Date of Service: Sep 11, 2025 Billing Provider: FRANDY CLAYTON MD Common Visit Codes: [id number] INP/OBS CARE(MOD) WESTON RICH, RES Sep 11, 2025 18:21 FRANDY CLAYTON MD Sep 13, 2025 06:53
[2025-09-11 19:47] VITALS: RESP 18; O2SAT 98
[2025-09-11 19:48] VITALS: BP 142/92; PULSE 102; RESP 18; TEMP 97.3; O2SAT 98
[2025-09-12 07:00] VITALS: RESP 16; O2SAT 99
[2025-09-12 08:00] VITALS: BP 124/76; PULSE 83; RESP 16; TEMP 97.2; O2SAT 99
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
[2025-09-12 19:54] VITALS: BP 119/77; PULSE 99; RESP 16; TEMP 97.4; O2SAT 97
[2025-09-12 20:00] VITALS: RESP 16; O2SAT 97
[2025-09-13 07:00] VITALS: BP 98/60; PULSE 79; RESP 12; TEMP 97.6; O2SAT 99
--- NOTE | 2025-09-13 17:37 | PROGRESS NOTE- Residence ---
Progress Note - Resident Providers to CC Resident Creating Document: WESTON JOYA, BRUCE ~ Antibiotic Timeout Antibiotic Ordered?: No Subjective Patient has been evaluated in mental health unit. She denies any medical complaints. Objective Vital Signs Date Time Temp Pulse Resp B/P (MAP) Pulse Ox O2 Delivery O2 Flow Rate FiO2 09/13/25 08:24 79 09/13/25 07:00 12 99 Room Air 0.0 09/13/25 07:00 97.6 98/60 (73) General: Awake and Alert, no acute distress. HEENT: Conjunctiva pink, Sclera clear, Mucus Membranes moist. Neck: Supple without masses and tenderness. Resp: Unlabored. Equal breath sounds bilaterally. Heart: Regular rhythm, normal S1 and S2, no rub, murmur or gallop. Abdomen: Soft and non tender no organomegaly. Normal bowel sounds x4 quadrant normoactive. No guarding or rigidity. Extremities: Normal ROM, right great toe ingrown toenail NAILER MACHINE: No gross motor or sensory abnormalities. Skin: Warm and Dry. Assessment Assessment 49-year-old female admitted to the mental health unit for severe depression and ADHD. Plan Plan Severe depression ADHD Continue management as per psychiatrist. Right 1st digit ingrown toenail Completed course of Augmentin Chronic back pain X-ray thoracic and lumbar spine were normal Pain controlled with lidocaine patch Lice infestation treated with permethrin - currently out of isolation. Disposition: Management per psychiatrist, hospitalist team will continue to follow. Weston Joya PGY-1 Date of Service: Sep 13, 2025 Billing Provider: NADINE BRANCH MD, PREETHI, BRUCE Sep 13, 2025 17:37
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
[2025-09-13 20:00] VITALS: BP 132/86; PULSE 113; RESP 20; TEMP 97.1; O2SAT 97
[2025-09-14 07:30] VITALS: BP 106/62; PULSE 85; RESP 16; TEMP 98.1; O2SAT 94; O2SAT 97
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
[2025-09-14] MEDS ORDERED: HYDR-3686 PO (14:20)
[2025-09-14] MEDS ORDERED: RISP-32 PO (14:20)
[2025-09-14] MEDS ORDERED: SPIR25TA PO (14:20)
[2025-09-14] MEDS ORDERED: PROP10TA10 PO (14:20)
[2025-09-14] MEDS ORDERED: METF-900 PO (14:20)
[2025-09-14] MEDS ORDERED: TOP100T PO (14:20)
[2025-09-14] MEDS ORDERED: MELO-102 PO (14:20)
[2025-09-14] MEDS ORDERED: DULO30CA52 PO (14:20)
[2025-09-14 19:00] VITALS: RESP 20; O2SAT 99
[2025-09-14 20:00] VITALS: BP 98/61; PULSE 89; RESP 20; TEMP 97.2; O2SAT 99
[2025-09-15 07:30] VITALS: BP 88/50; PULSE 77; RESP 15; TEMP 96.9; O2SAT 96
[2025-09-15] MEDS ORDERED: albuterol 2.5 MG/3 ML nebule NEB PRN (18:20)
--- NOTE | 2025-09-15 18:25 | PROGRESS NOTE ---
Daily Progress Note Providers to CC ~ Antibiotic Timeout Antibiotic Ordered?: No Subjective Patient was seen in her room she is crying and saying that she wants to nursing staff in [facility] aware about it and Sourav is taking care of this patient currently. New labs and x-ray chest ordered as patient's lung sounds mildly coarse on auscultation Objective Vital Signs Date Time Temp Pulse Resp B/P (MAP) Pulse Ox O2 Delivery O2 Flow Rate FiO2 09/15/25 07:30 96.9 77 15 88/50 (63) 96 Room Air 0.0 General-patient not in any acute distress, alert awake , obese, crying HEENT-atraumatic normocephalic, neck supple without elevated JVD, no thyromegaly or carotid bruit. No lymphadenopathy bilaterally. Eyes-no icterus or pallor seen in eyes Chest-coarse lung sounds to auscultation bilaterally, breathing nonlabored no tachypnea, no wheezing, no crackles. Heart-S1-S2 normal, regular heart rate no murmur Abdomen bowel sounds positive on auscultation, soft nondistended nontender no guarding, no rigidity Skin / extremity-no pedal edema able to move all four extremity. Neurology-grossly intact, nonfocal alert awake cooperated during physical examination Problem\Assessment\Plan This is a 49-year-old female admitted for psychiatric illness adult mental health Unit Severe depression ADHD Followed by Psychiatry Right 1st toe ingrown toenail medially Completed a one-week course of Augmentin We will need outpatient follow up with the Podiatry Bilateral lower Leg and Feet Swelling vascular ultrasound of lower extremity showed No right or left femoropopliteal venous thrombosis. NORMOCYTIC NORMOCHROMIC ANEMIA Hgb 11 Hct: 32.2 Lice Treated with permethrin P.o. ivermectin Out of isolation Low-back pain Likely secondary bilateral SI joint dysfunction Physical therapy Continue PRN ibuprofen and scheduled meloxicam Disposition: Hospitalist team will continue to monitor patient. Date of Service: Sep 15, 2025 Billing Provider: FREDRICK THAKKAR MD Common Visit Codes: [id number] INP/OBS CARE(LOW) FREDRICK THAKKAR MD Sep 15, 2025 18:25
--- NOTE | 2025-09-15 18:40 | RADIOLOGY REPORT ---
CHEST RADIOGRAPH Indication: coarse breath sounds Technique: DI CHEST,SINGLE VIEW Comparison: None FINDINGS: The cardiac silhouette is unremarkable. The lungs demonstrate no pulmonary airspace consolidation. The pulmonary vasculature is unremarkable. There is no pleural effusion. There is no pneumothorax. IMPRESSION: No pulmonary airspace consolidation.
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
[2025-09-15 19:00] VITALS: RESP 20; O2SAT 99
[2025-09-15 20:00] VITALS: BP 116/84; PULSE 88; RESP 20; TEMP 96.6; O2SAT 99
[2025-09-15 21:04] LABS: MEAN PLATELET VOLUME 9.5 FL (7.4-10.4); RED CELL DISTRIBUTION WIDTH 13.6 % (11.5-14.5)
[2025-09-15 21:21] LABS: CREATININE 0.69 MG/DL (0.40-0.90); TOTAL CARBON DIOXIDE 22.1 MMOL/L (24-32); eCRCL 101 ML/MIN; eGFR > 90 ML/MIN
[2025-09-16 07:30] VITALS: BP 117/70; PULSE 86; RESP 12; TEMP 97.5; O2SAT 96
[2025-09-16] MEDS ORDERED: DOCU100C40 PO ×2 (10:00→12:53)
[2025-09-16] MEDS ORDERED: ALBU2.5V7 NEB ×2 (10:00→12:53)
[2025-09-16] MEDS ORDERED: RESTASIS EACHEYE ×2 (10:00→12:53)
[2025-09-16] MEDS ORDERED: MELO-100 PO ×2 (10:00→12:53)
[2025-09-16] MEDS ORDERED: LIDO700A47 TP ×2 (10:00→12:53)
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
[2025-09-16] MEDS ORDERED: SPIR25TA PO (12:53)
[2025-09-16] MEDS ORDERED: DULO30CA52 PO (12:53)
[2025-09-16] MEDS ORDERED: TOP100T PO (12:53)
[2025-09-16] MEDS ORDERED: HYDR-3686 PO (12:53)
[2025-09-16] MEDS ORDERED: RISP-32 PO (12:53)
[2025-09-16 19:00] VITALS: RESP 16; O2SAT 97
[2025-09-16 19:16] VITALS: BP 113/72; PULSE 96; RESP 16; TEMP 97.3; O2SAT 97
[2025-09-17 07:00] VITALS: RESP 17; O2SAT 96
[2025-09-17 08:00] VITALS: BP 106/75; PULSE 87; RESP 17; TEMP 97.2; O2SAT 96
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
--- NOTE | 2025-09-17 15:27 | PROGRESS NOTE ---
Daily Progress Note Providers to CC Chief complaint, bilateral toenail big toes, ingrown nails associated with inflammatory changes chronic ~ Central Line/PICC still needed: No Sheffield-Non Protocol [place] Indications Met/Not Met: F/C Indications Not Met Antibiotic Timeout Antibiotic Ordered?: Yes MRSA Education MRSA Education Provided to pt: Yes Subjective As above Objective Vital Signs Date Time Temp Pulse Resp B/P (MAP) Pulse Ox O2 Delivery O2 Flow Rate FiO2 09/17/25 08:00 97.2 87 17 106/75 (85) 96 Room Air 09/16/25 07:30 0.0 Vital signs, stable ,afebrile. Pulse Oximetry reflects adequate oxygenation. General: well developed, well nourished. Awake , alert, and oriented x4, resting comfortably in the bed, in no acute distress . Skin: Warm, dry, no pallor, no rash or petechiae. HEENT: Atraumatic, normocephalic, EOMI, anicteric sclera B; pink conjunctiva; PERRLA, normal oropharynx, moist oral and nasal mucosa. Tympanic membrane , nose , throat clear. Neck: Trachea midline. Supple, full range of motion, no JVD, bruit , hepatojugular reflex , lymphadenopathy or masses, or other lesions Cardiac: Regular rhythm, regular rate no murmurs, rubs, or gallops. Normal S1 and S2, no S3 noticed. PMI is normal. Respiratory: Equal breath sounds bilaterally, no tachypnea; lungs clear to auscultation bilaterally, no wheezing ,rub or rales, or crackles. Chest wall is symmetric and without deformity. No signs of trauma. Chest wall is nontender. No signs of respiratory distress. Resonance is normal upon percussion bilaterally. Gastrointestinal: Abdomen symmetric, non-distended, soft, non-tender, normal bowel sounds x4 quadrant, normoactive, no hepatosplenomegaly , no masses , no bruit, no flank pain bilaterally. No voluntary guarding, rebound, or rigidity. No tenderness to percussion. No pulsatile masses. Equal femoral pulses. No Felipe's sign or McBurney point tenderness. Back; no CVA tenderness bilaterally, no deformities. Neck and back are without deformity as well. No tenderness noted on palpation of the spinous processes. Spinous processes are midline. Cervical, thoracic, and lumbar paraspinal muscles are not tender and are without spasm. Locally, bilaterally feet, 1st toes, with ingrown toenails, associated with redness scanty seropurulent discharge, edema, mild tender to palpation Musculoskeletal: Extremities, normal range of motion, non-tender, muscle strength 5/5 x 4. Negative Homans signs bilaterally on lower extremity. Distal pulses full symmetrical, no clubbing, cyanosis , edema. Neurological: Speech is clear, alert, and oriented x 4. No motor or sensory deficit, deep tendon reflexes normal, cerebellar intact. Cranial nerves II-XII intact. Psych: Alert and or appropriate, normal affect. Vascular: Good distal pulses, which are equal x4; capillary refill less than 2 seconds. Lymphatic, no lymphadenopathy. Result Diagram: 09/15/25203709/15/252037 Problem\Assessment\Plan Assessment/plan This is a 49-year-old female admitted for psychiatric illness adult mental health Unit Severe depression ADHD Followed by Psychiatry Bilateral 1st toe ingrown toenail Wound care Care consult, Sheet Metal Duct Installer contacted and consult pending Bilateral lower Leg and Feet Swelling vascular ultrasound of lower extremity showed No right or left femoropopliteal venous thrombosis. NORMOCYTIC NORMOCHROMIC ANEMIA Hgb 11 Hct: 32.2 Lice Treated with permethrin P.o. ivermectin Out of isolation Low-back pain Likely secondary bilateral SI joint dysfunction Physical therapy Continue PRN ibuprofen and scheduled meloxicam Disposition: Hospitalist team will continue to monitor patient. Sepsis Screening Reassessment Date: Sep 17, 2025 Date of Service: Sep 17, 2025 Billing Provider: NEISHA MORELOS MD Common Visit Codes: [id number] INP/OBS CARE(MOD) NEISHA MORELOS MD Sep 17, 2025 15:27
[2025-09-17 19:36] VITALS: RESP 20; O2SAT 98
[2025-09-17 19:39] VITALS: BP 105/79; PULSE 94; RESP 20; TEMP 97.3; O2SAT 98
[2025-09-17] MEDS: chlorhexidine gluc 4% **topical ** 120ml btl. TP SCH (20:19)
[2025-09-18 07:40] VITALS: BP 112/96; PULSE 89; RESP 16; TEMP 97.2; O2SAT 96
--- NOTE | 2025-09-18 09:29 | CONSULTATION REPORT ---
Consult Providers to CC ~ History of Present Illness Reason for Admit\Complaint: Psychiatric evaluation History of Present Illness This patient was admitting in early August for psychiatric evaluation and our service was consulted for bilateral hallucal onychocryptosis. She denies nausea, vomiting, fever, chills, chest pain, shortness of breath today. Allergies: Coded Allergies: morphine (Verified Allergy, Unknown, 08/22/25) Home Medications Home Medications Active Atarax* (Hydroxyzine HCl) 25 Mg Tablet 50 Mg PO Q6H PRN 30 Days Lidocaine 5 % Adh..patch 1 Patch TP DAILY 30 Days Docusate Sodium 100 Mg Caps 100 Mg PO HS 30 Days Restasis (Cyclosporine) 0.05 % Droperette 1 Drp EACHEYE BID 30 Days Risperidone 2 Mg Tablet 2 Mg PO BID 30 Days Duloxetine HCl 30 Mg Capsule.dr 90 Mg PO DAILY 30 Days Topamax (Topiramate) 100 Mg Tablet 100 Mg PO DAILY 30 Days Meloxicam* (Meloxicam) 7.5 Mg Tablet 15 Mg PO DAILY 30 Days Aldactone (Spironolactone) 25 Mg Tablet 25 Mg PO DAILY 30 Days Albuterol Sulfate (Albuterol) 2.5 Mg/3 Ml Vial.neb 2.5 Mg NEB Q6H PRN 30 Days Family History Family History: Patient reports no known family medical history. Exam Vitals: Vital Signs Date Time Temp Pulse Resp B/P (MAP) Pulse Ox O2 Delivery O2 Flow Rate FiO2 09/17/25 19:39 97.3 94 20 105/79 (88) 98 Room Air 09/16/25 07:30 0.0 Musculoskeletal: Bilateral lower extremity: DP/PT pulses palable with light touch sensation intact about digits 1-5. ingrown medial and lateral nail plate is associated with soft tissue granulomatous inflammation without erythema, purulence, soft tissue crepitus Calf is soft and compressible Diagnostic Data Last Recorded Lab Results: 09/15/25203709/15/252037 Additional Plan Plan: -Bilateral hallucal nail plate avulsion was performed and well tolerated today. See procedure note below. -Leave dressing intact for 24 hours and then begin 20 min epsom salt soaks daily for 7 days -Recommend 5 day course of Keflex -Weightbearing as tolerated bilaterally. -Remainder of care per primary Procedure Note: Verbal consent was obtained from the patient and a timeout was performed. 5 cc 1% lidocaine plain was infiltrated in a ring block fashion about the hallucal nail plate. The identical procedure was peformed on the right hallux followed by the left. A pickup was utilized to free the eponychium from the nail plate and utilizing a hemostat the nail plate was removed in total. This was irrigated with normal saline and dressed with bacitracin, 2x2s, and Coban. The identical procedure was performed on the left which was very well tolerated. ADRLENE ALVARADO DPM Sep 18, 2025 09:29
[2025-09-18] MEDS: LIDOcaine 1% 30ml preserv. free vial SQ STA (10:10)
[2025-09-18 10:18] VITALS: RESP 16; O2SAT 96
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
[2025-09-18 19:32] VITALS: RESP 18; O2SAT 98
[2025-09-18 19:35] VITALS: BP 119/87; PULSE 65; RESP 18; TEMP 96.4; O2SAT 98
[2025-09-19 07:21] VITALS: BP 112/70; PULSE 83; RESP 14; TEMP 97.5; O2SAT 98
[2025-09-19 08:15] VITALS: RESP 14; O2SAT 98
[2025-09-19 08:24] VITALS: BP_SYST 112; PULSE 83
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
--- NOTE | 2025-09-19 21:50 | PROGRESS NOTE ---
Daily Progress Note Providers to CC ~ Antibiotic Timeout Antibiotic Ordered?: No Subjective Was seen in her room she looked comfortable and behavioral health nursing staff mentioned that she will be discharged today. Objective Vital Signs Date Time Temp Pulse Resp B/P (MAP) Pulse Ox O2 Delivery O2 Flow Rate FiO2 09/19/25 08:24 83 09/19/25 08:15 14 98 Room Air 09/19/25 07:21 97.5 112/70 (84) 09/16/25 07:30 0.0 Result Diagram: 09/15/25203709/15/252037 General-patient not in any acute distress, alert awake , obese, looks comfortable HEENT-atraumatic normocephalic, neck supple without elevated JVD, no thyromegaly or carotid bruit. No lymphadenopathy bilaterally. Eyes-no icterus or pallor seen in eyes Chest-coarse lung sounds to auscultation bilaterally, breathing nonlabored no tachypnea, no wheezing, no crackles. Heart-S1-S2 normal, regular heart rate no murmur Abdomen bowel sounds positive on auscultation, soft nondistended nontender no guarding, no rigidity Skin / extremity-no pedal edema able to move all four extremity. Neurology-grossly intact, nonfocal alert awake cooperated during physical examination Problem\Assessment\Plan Assessment/plan This is a 49-year-old female admitted for psychiatric illness adult mental health Unit Severe depression ADHD Followed by Psychiatry Bilateral 1st toe ingrown toenail Wound care Care consult, Rn Pacu contacted and consult pending Bilateral lower Leg and Feet Swelling vascular ultrasound of lower extremity showed No right or left femoropopliteal venous thrombosis. NORMOCYTIC NORMOCHROMIC ANEMIA Hgb 11 Hct: 32.2 Lice Treated with permethrin P.o. ivermectin Out of isolation Low-back pain Likely secondary bilateral SI joint dysfunction Physical therapy Continue PRN ibuprofen and scheduled meloxicam Date of Service: Sep 19, 2025 Billing Provider: FREDRICK THAKKAR MD Common Visit Codes: [id number] INP/OBS CARE(LOW) FREDRICK THAKKAR MD Sep 19, 2025 21:50
== END 2025-09-19 18:55 | disposition home or self-care (01) | DRG 885 ==
LOC: ER 22:08 → ED HOLD 08-23 12:20 → UNDOADMIN 08-23 12:20 → ADULT MH 08-23 14:28 → ED HOLD 08-23 14:28 → ADULT MH 09-05 13:22
PROVIDERS: ADMIT Psychiatry & Neurology Psychiatry; ATTEND Psychiatry & Neurology Psychiatry
PROC: GZHZZZZ Group Psychotherapy (ICD-10-PCS; principal; 2025-08-24)
PROC: GZ51ZZZ Individual Psychotherapy, Behavioral (ICD-10-PCS; 2025-08-24)
DX: F33.3 Major depressive disorder, recurrent, severe with psychotic symptoms (principal); Z59.00 Homelessness unspecified; R45.851 Suicidal ideations; B85.2 Pediculosis, unspecified; D64.9 Anemia, unspecified; E28.2 Polycystic ovarian syndrome; Z20.822 Contact with and (suspected) exposure to COVID-19; F90.9 Attention-deficit hyperactivity disorder, unspecified type; F41.9 Anxiety disorder, unspecified; F17.210 Nicotine dependence, cigarettes, uncomplicated; F43.10 Post-traumatic stress disorder, unspecified; F84.5 Asperger's syndrome; L60.0 Ingrowing nail; Z79.899 Other long term (current) drug therapy; Z90.711 Acquired absence of uterus with remaining cervical stump; Z79.84 Long term (current) use of oral hypoglycemic drugs; Z88.5 Allergy status to narcotic agent; Z85.41 Personal history of malignant neoplasm of cervix uteri
CPT/HCPCS: 36415; 71045; 72070; 72100; 80053; 80061; 80076; 80178; 80183; 80305; 80320; 81001; 81025; 82728; 83036; 83540; 83721; 83880; 84145; 84443; 84466; 85025; 85651; 86140; 87081; 87811; 93005; 93970; 99285; A6250; A6258; A6402; A6449; Q0161; Q0177